=== PATIENT | male | born 1965 | race Caucasian/White ===

== ENCOUNTER 2016-10-21 12:30 | Outpatient (CLI) | payer OTHER ==
[2016-10-21 18:01] LABS: EOSINOPHILS # (AUTO) 0.5 10^3/uL (0.0-0.7); HGB - HEMOGLOBIN 13.8 g/dL (14.0-18.0); LYMPHOCYTES # (AUTO) 1.4 10^3/uL (1.5-3.5); MEAN PLATELET VOLUME 9.6 fL (7.4-11.4); MONOCYTES # (AUTO) 0.4 10^3/uL (0.0-1.0)
[2016-10-21 18:06] LABS: BASOPHILS # (AUTO) 0.1 10^3/uL (0.0-0.1); BASOPHILS % (AUTO) 1.1 %; EOSINOPHILS % (AUTO) 8.3 %; HCT - HEMATOCRIT 40.6 % (42.0-52.0); LYMPHOCYTES % (AUTO) 24.7 %; MEAN CORPUSCULAR HGB CONC 33.9 g/dL (32.0-36.0); MEAN CORPUSCULAR VOLUME 94.3 fL (80.0-94.0); MONOCYTES % (AUTO) 7.6 %; NEUTROPHILS # (AUTO) 3.2 10^3/uL (1.5-6.6); NEUTROPHILS % (AUTO) 58.3 %; RED CELL DISTRIBUTION WIDTH 13.6 % (12.0-15.0); UNCORRECTED WHITE BLOOD COUNT 5.5 x10^3/uL; WHITE BLOOD COUNT 5.5 x10^3/uL (4.8-10.8)
[2016-10-21 18:30] LABS: BILIRUBIN,TOTAL 2.2 mg/dL (0.2-1.0); CALCIUM 8.9 mg/dL (8.5-10.3); CREATININE 0.7 mg/dL (0.6-1.2); TOTAL PROTEIN 7.1 g/dL (6.7-8.2)
== END 2016-10-21 12:31 | disposition home or self-care (01) ==
LOC: LAB.F 12:30
PROVIDERS: ATTEND Internal Medicine
DX: R94.5 Abnormal results of liver function studies (principal); D64.9 Anemia, unspecified
CPT/HCPCS: 36415; 80053; 85025

== ENCOUNTER 2018-08-04 18:02 | Outpatient (CLI) | payer OTHER | END 2018-08-04 18:03 | disposition critical access hospital (66) | LOC: EMS 18:02 | PROVIDERS: ATTEND Surgery | DX: R42 Dizziness and giddiness (principal); R11.2 Nausea with vomiting, unspecified; R61 Generalized hyperhidrosis; R20.2 Paresthesia of skin; W57.XXXA Bitten or stung by nonvenomous insect and other nonvenomous arthropods, initial encounter | CPT/HCPCS: A0425; A0427 ==

== ENCOUNTER 2018-08-04 18:30 | Emergency (ER) | payer OTHER ==
[2018-08-04] MEDS ORDERED: methylPREDNISolone SUCCINATE 125 MG/2 ML VIAL IVP STA (18:37)
--- NOTE | 2018-08-04 18:38 | ED Physician Documentation ---
PD HPI SKIN - Stated complaint Stated Complaint: BEE STING - Chief complaint Chief Complaint: Allergic Rx - History obtained from History obtained from: Patient, EMS - History of Present Illness Timing - onset: Today (53-year-old gentleman with history of bee sting anaphylaxis presents after a bee sting to the right inner arm with a syncopal episode. He presented with his to an EMS station where his blood pressure was 90 systolic despite having a history of hypertension. They administered IV Benadryl and IM epinephrine with improvement. He feels shaky and drained now but feels otherwise back to normal. There was never any wheezing or angioedema.) Review of Systems Constitutional: denies: Fever, Chills Ears: reports: Reviewed and negative Nose: reports: Reviewed and negative Throat: reports: Reviewed and negative Cardiac: reports: Reviewed and negative Respiratory: reports: Reviewed and negative PD PAST MEDICAL HISTORY - Past Medical History Cardiovascular: Hypertension, High cholesterol, Deep vein thrombosis, Pulmonary embolism, Atrial fibrillation Respiratory: Sleep apnea Endocrine/Autoimmune: None GI: GI bleed : None HEENT: None Psych: None, Anxiety, Claustrophobia Musculoskeletal: None Derm: None - Past Surgical History Past Surgical History: Yes - Present Medications Home Medications: Ambulatory Orders Medication Instructions Recorded Confirmed Carvedilol 25 mg PO BID 09/27/12 11/08/15 EPINEPHrine [Epinephrine] 0.3 mg IJ ONCE PRN #2 auto.injct 08/04/18 predniSONE [Deltasone] 60 mg PO DAILY 5 Days tablet 08/04/18 - Allergies Allergies/Adverse Reactions: Allergies Allergy/AdvReac Type Severity Reaction Status Date / Time BEE STINGS AdvReac Severe Anaphylaxis Uncoded 08/04/18 18:36 - Social History Does the pt smoke?: No Smoking Status: Never smoker Does the pt drink ETOH?: Yes Does the pt have substance abuse?: Yes - Immunizations Immunizations are current?: Yes - POLST Patient has POLST: No PD ED PE NORMAL - Vitals Vital signs reviewed: Yes - General General: Alert and oriented X 3, No acute distress - HEENT HEENT: PERRL, EOMI, Ears normal, Moist mucous membranes, Pharynx benign - Neck Neck: Supple, no meningeal sign, No bony TTP - Cardiac Cardiac: RRR, No murmur - Respiratory Respiratory: No respiratory distress, Clear bilaterally - Abdomen Abdomen: Soft, Non tender - Back Back: No CVA TTP, No spinal TTP - Derm Derm: Normal color, Warm and dry - Extremities Extremities: No edema, No calf tenderness / cord - Neuro Neuro: Alert and oriented X 3, Normal speech - Psych Psych: Normal mood, Normal affect Results - Vitals Vitals: Vital Signs - 24 hr 08/04/18 08/04/18 08/04/18 18:31 19:19 21:00 Temperature 36.6 C Heart Rate 104 H 124 H 95 Respiratory 22 18 18 Rate Blood Pressure 134/81 H 144/102 H 164/110 H O2 Saturation 97 95 95 Oxygen O2 Source Room air - EKG (time done) 2020 Rate: Rate (enter#) (94) Rhythm: NSR Valier: Normal Intervals: Normal IA QRS: Normal Ischemia: Normal ST segments Computer interpretation: Agree with computer PD MEDICAL DECISION MAKING - ED course ED course: 53-year-old gentleman with anaphylaxis after a bee sting. He was administered epinephrine and Benadryl prior to arrival with improvement and observed in the department for several hours without evidence of recurrence. He had epi-pens at home but these were refilled as he thought they were . Departure - Departure Disposition: Home, Self Care Clinical Impression: Anaphylaxis Qualifiers: Encounter type: initial encounter Qualified Code(s): T78.2XXA - Anaphylactic shock, unspecified, initial encounter Condition: Good Record reviewed to determine appropriate education?: Yes Instructions: ED Bite Sting Insect Gen Allergic React Prescriptions: EPINEPHrine [Epinephrine] 0.3 mg IJ ONCE PRN #2 auto.injct PRN Reason: Allergy Symptoms predniSONE [Deltasone] 60 mg PO DAILY 5 Days tablet Comments: Call your doctor to arrange a follow-up appointment, make the next available appointment. In the interim, return anytime if worse or if new symptoms develop.
[2018-08-04] MEDS ORDERED: SODIUM CHLORIDE 0.9% 1,000 ML IV ONE (18:47)
[2018-08-04 21:05] VITALS: BP 164/110
[2018-08-04] MEDS ORDERED: HYDROcod/ACET 5/325 Prepack 4 PO STA (21:35)
== END 2018-08-04 21:52 | disposition home or self-care (01) ==
LOC: EDUNIT# → ED 18:30
DX: T63.441A Toxic effect of venom of bees, accidental (unintentional), initial encounter (principal); X58.XXXA Exposure to other specified factors, initial encounter; R55 Syncope and collapse; I10 Essential (primary) hypertension
CPT/HCPCS: 93005; 96361; 96374; 99283; 99284

== ENCOUNTER 2019-12-06 15:26 | Outpatient (CLI) | payer OTHER | END 2019-12-06 15:27 | disposition home or self-care (01) | LOC: LAB.S 15:26 | PROVIDERS: ATTEND Ophthalmology | DX: H53.2 Diplopia (principal) | CPT/HCPCS: 36415; 83036; 83519; 84443; 85651; 86038; 86140 ==

== ENCOUNTER 2020-01-23 10:55 | Outpatient (CLI) | payer OTHER ==
[2020-01-23 15:18] LABS: BASOPHILS % (AUTO) 0.2 %; EOSINOPHILS % (AUTO) 0.2 %; LYMPHOCYTES # (AUTO) 0.7 10^3/uL (1.5-3.5); LYMPHOCYTES % (AUTO) 7.9 %; MEAN CORPUSCULAR HEMOGLOBIN 35.1 pg (27.0-31.0); MEAN CORPUSCULAR HGB CONC 35.1 g/dL (32.0-36.0); MEAN PLATELET VOLUME 10.7 fL (7.4-11.4); MONOCYTES # (AUTO) 0.8 10^3/uL (0.0-1.0); MONOCYTES % (AUTO) 9.1 %; NEUTROPHILS # (AUTO) 7.4 10^3/uL (1.5-6.6); NEUTROPHILS % (AUTO) 81.7 %; PLT - PLATELET COUNT 90 10^3/uL (130-450); RED BLOOD COUNT 4.56 10^6/uL (4.70-6.10); RED CELL DISTRIBUTION WIDTH 13.1 % (12.0-15.0); WHITE BLOOD COUNT 9.1 x10^3/uL (4.8-10.8)
[2020-01-23 15:34] LABS: ALT ALANINE AMINOTRANSFERASE 63 IU/L (10-60); AST ASPARTATE AMINOTRANSFERASE 144 IU/L (10-42)
== END 2020-01-23 10:56 | disposition home or self-care (01) ==
LOC: LAB.S 10:55
PROVIDERS: ATTEND Psychiatry & Neurology Neurology
DX: Z51.81 Encounter for therapeutic drug level monitoring (principal); Z79.899 Other long term (current) drug therapy
CPT/HCPCS: 36415; 84450; 84460; 85025

== ENCOUNTER 2020-07-18 11:45 | Outpatient (CLI) | payer OTHER ==
[2020-07-18 14:53] LABS: BASOPHILS # (AUTO) 0.1 10^3/uL (0.0-0.1); BASOPHILS % (AUTO) 1.9 %; EOSINOPHILS # (AUTO) 0.4 10^3/uL (0.0-0.7); EOSINOPHILS % (AUTO) 9.5 %; HCT - HEMATOCRIT 35.5 % (42.0-52.0); HGB - HEMOGLOBIN 11.7 g/dL (14.0-18.0); LYMPHOCYTES % (AUTO) 20.6 %; MEAN CORPUSCULAR HEMOGLOBIN 30.6 pg (27.0-31.0); MEAN CORPUSCULAR VOLUME 92.9 fL (80.0-94.0); MEAN PLATELET VOLUME 10.6 fL (7.4-11.4); MONOCYTES # (AUTO) 0.8 10^3/uL (0.0-1.0); MONOCYTES % (AUTO) 18.2 %; NEUTROPHILS # (AUTO) 2.3 10^3/uL (1.5-6.6); NEUTROPHILS % (AUTO) 49.4 %; PLT - PLATELET COUNT 117 10^3/uL (130-450); RED BLOOD COUNT 3.82 10^6/uL (4.70-6.10); RED CELL DISTRIBUTION WIDTH 16.3 % (12.0-15.0); WHITE BLOOD COUNT 4.6 x10^3/uL (4.8-10.8)
== END 2020-07-18 11:46 | disposition home or self-care (01) ==
LOC: LAB.S 11:45
PROVIDERS: ATTEND Internal Medicine Infectious Disease
DX: K65.1 Peritoneal abscess (principal)
CPT/HCPCS: 36415; 85025; 85651; 86140

== ENCOUNTER 2020-08-04 15:37 | Outpatient (CLI) | payer OTHER ==
[2020-08-04 19:54] LABS: BASOPHILS # (AUTO) 0.1 10^3/uL (0.0-0.1); BASOPHILS % (AUTO) 1.8 %; EOSINOPHILS # (AUTO) 0.5 10^3/uL (0.0-0.7); EOSINOPHILS % (AUTO) 10.9 %; HCT - HEMATOCRIT 34.4 % (42.0-52.0); HGB - HEMOGLOBIN 11.4 g/dL (14.0-18.0); LYMPHOCYTES # (AUTO) 1.3 10^3/uL (1.5-3.5); LYMPHOCYTES % (AUTO) 28.5 %; MEAN CORPUSCULAR HEMOGLOBIN 30.4 pg (27.0-31.0); MEAN CORPUSCULAR HGB CONC 33.1 g/dL (32.0-36.0); MEAN CORPUSCULAR VOLUME 91.7 fL (80.0-94.0); MONOCYTES # (AUTO) 0.7 10^3/uL (0.0-1.0); MONOCYTES % (AUTO) 15.9 %; NEUTROPHILS # (AUTO) 1.9 10^3/uL (1.5-6.6); NEUTROPHILS % (AUTO) 42.7 %; PLT - PLATELET COUNT 97 10^3/uL (130-450); RED BLOOD COUNT 3.75 10^6/uL (4.70-6.10); RED CELL DISTRIBUTION WIDTH 15.7 % (12.0-15.0); WHITE BLOOD COUNT 4.4 x10^3/uL (4.8-10.8)
== END 2020-08-04 15:38 | disposition home or self-care (01) ==
LOC: LAB.S 15:37
PROVIDERS: ATTEND Internal Medicine Infectious Disease
DX: K65.1 Peritoneal abscess (principal)
CPT/HCPCS: 36415; 85025; 85651; 86141

== ENCOUNTER 2020-12-10 15:59 | Outpatient (CLI) | payer OTHER ==
[2020-12-10 19:58] LABS: HCT - HEMATOCRIT 40.2 % (42.0-52.0); HGB - HEMOGLOBIN 13.6 g/dL (14.0-18.0); LYMPHOCYTES # (AUTO) 0.4 10^3/uL (1.5-3.5); MEAN CORPUSCULAR HEMOGLOBIN 32.2 pg (27.0-31.0); MEAN CORPUSCULAR HGB CONC 33.8 g/dL (32.0-36.0); MEAN PLATELET VOLUME 10.6 fL (7.4-11.4); MONOCYTES # (AUTO) 0.2 10^3/uL (0.0-1.0); MONOCYTES % (AUTO) 6.3 %; NEUTROPHILS # (AUTO) 2.4 10^3/uL (1.5-6.6); NEUTROPHILS % (AUTO) 78.4 %; PLT - PLATELET COUNT 67 10^3/uL (130-450); RED BLOOD COUNT 4.23 10^6/uL (4.70-6.10); RED CELL DISTRIBUTION WIDTH 13.7 % (12.0-15.0)
[2020-12-10 20:09] LABS: ALBUMIN 3.4 g/dL (3.2-5.5); BILIRUBIN,TOTAL 2.3 mg/dL (0.2-1.0); CALCIUM 8.9 mg/dL (8.5-10.3); CREATININE 0.7 mg/dL (0.6-1.2); POTASSIUM 4.2 mmol/L (3.5-5.0); TOTAL PROTEIN 6.7 g/dL (6.7-8.2)
== END 2020-12-10 16:00 | disposition home or self-care (01) ==
LOC: LAB.S 15:59
PROVIDERS: ATTEND Registered Nurse
DX: I82.401 Acute embolism and thrombosis of unspecified deep veins of right lower extremity (principal); D70.8 Other neutropenia; D69.6 Thrombocytopenia, unspecified; K70.30 Alcoholic cirrhosis of liver without ascites
CPT/HCPCS: 36415; 80053; 85025

== ENCOUNTER 2021-05-14 08:00 | Outpatient (CLI) | payer OTHER ==
[2021-05-14 20:00] LABS: BASOPHILS # (AUTO) 0.1 10^3/uL (0.0-0.1); EOSINOPHILS # (AUTO) 0.7 10^3/uL (0.0-0.7); EOSINOPHILS % (AUTO) 9.2 %; HGB - HEMOGLOBIN 13.2 g/dL (14.0-18.0); LYMPHOCYTES # (AUTO) 0.8 10^3/uL (1.5-3.5); LYMPHOCYTES % (AUTO) 10.7 %; MEAN CORPUSCULAR HEMOGLOBIN 32.9 pg (27.0-31.0); MEAN CORPUSCULAR HGB CONC 34.7 g/dL (32.0-36.0); MEAN CORPUSCULAR VOLUME 94.8 fL (80.0-94.0); MEAN PLATELET VOLUME 10.6 fL (7.4-11.4); MONOCYTES # (AUTO) 0.5 10^3/uL (0.0-1.0); MONOCYTES % (AUTO) 6.3 %; NEUTROPHILS # (AUTO) 5.3 10^3/uL (1.5-6.6); PLT - PLATELET COUNT 69 10^3/uL (130-450); RED BLOOD COUNT 4.01 10^6/uL (4.70-6.10); RED CELL DISTRIBUTION WIDTH 13.7 % (12.0-15.0); WHITE BLOOD COUNT 7.3 x10^3/uL (4.8-10.8)
== END 2021-05-14 23:59 ==
LOC: LAB.S 08:00
PROVIDERS: ATTEND Registered Nurse
DX: I82.401 Acute embolism and thrombosis of unspecified deep veins of right lower extremity (principal); G62.9 Polyneuropathy, unspecified; D69.6 Thrombocytopenia, unspecified; D70.8 Other neutropenia
CPT/HCPCS: 36415; 85025

== ENCOUNTER 2022-07-08 11:15 | Outpatient (CLI) | payer OTHER ==
[2022-07-08 14:34] LABS: BASOPHILS # (AUTO) 0.1 10^3/uL (0.0-0.1); BASOPHILS % (AUTO) 1.3 %; EOSINOPHILS # (AUTO) 0.3 10^3/uL (0.0-0.7); EOSINOPHILS % (AUTO) 4.3 %; HCT - HEMATOCRIT 41.7 % (42.0-52.0); HGB - HEMOGLOBIN 14.1 g/dL (14.0-18.0); LYMPHOCYTES # (AUTO) 1.2 10^3/uL (1.5-3.5); LYMPHOCYTES % (AUTO) 18.7 %; MEAN CORPUSCULAR HGB CONC 33.8 g/dL (32.0-36.0); MEAN CORPUSCULAR VOLUME 97.7 fL (80.0-94.0); MEAN PLATELET VOLUME 10.3 fL (7.4-11.4); MONOCYTES # (AUTO) 0.6 10^3/uL (0.0-1.0); MONOCYTES % (AUTO) 9.4 %; NEUTROPHILS # (AUTO) 4.2 10^3/uL (1.5-6.6); NEUTROPHILS % (AUTO) 65.7 %; PLT - PLATELET COUNT 118 10^3/uL (130-450); RED BLOOD COUNT 4.27 10^6/uL (4.70-6.10); RED CELL DISTRIBUTION WIDTH 13.8 % (12.0-15.0); WHITE BLOOD COUNT 6.3 x10^3/uL (4.8-10.8)
[2022-07-08 14:40] LABS: PARTIAL THROMBOPLASTIN TIME 29.8 secs (24.9-33.3)
[2022-07-08 14:48] LABS: INR 1.2 (0.8-1.2); PT - PROTHROMBIN TIME 13.2 secs (9.9-12.6)
[2022-07-08 15:28] LABS: ALBUMIN 3.3 g/dL (3.2-5.5); BILIRUBIN,TOTAL 2.3 mg/dL (0.2-1.0); CALCIUM 8.9 mg/dL (8.5-10.3); CREATININE 0.7 mg/dL (0.6-1.2); POTASSIUM 3.7 mmol/L (3.5-5.0); TOTAL PROTEIN 6.5 g/dL (6.7-8.2)
== END 2022-07-08 11:16 | disposition home or self-care (01) ==
LOC: LAB.S 11:15
PROVIDERS: ATTEND Registered Nurse
DX: G70.00 Myasthenia gravis without (acute) exacerbation (principal); D69.6 Thrombocytopenia, unspecified; K70.30 Alcoholic cirrhosis of liver without ascites
CPT/HCPCS: 36415; 80053; 85025; 85610; 85730

== ENCOUNTER 2023-01-14 11:05 | Outpatient (CLI) | payer OTHER ==
[2023-01-14 15:33] LABS: BASOPHILS # (AUTO) 0.1 10^3/uL (0.0-0.1); BASOPHILS % (AUTO) 0.8 %; EOSINOPHILS # (AUTO) 0.2 10^3/uL (0.0-0.7); EOSINOPHILS % (AUTO) 2.4 %; HCT - HEMATOCRIT 43.4 % (42.0-52.0); HGB - HEMOGLOBIN 14.5 g/dL (14.0-18.0); LYMPHOCYTES % (AUTO) 10.4 %; MEAN CORPUSCULAR HGB CONC 33.4 g/dL (32.0-36.0); MEAN CORPUSCULAR VOLUME 98.9 fL (80.0-94.0); MEAN PLATELET VOLUME 10.6 fL (7.4-11.4); MONOCYTES # (AUTO) 0.6 10^3/uL (0.0-1.0); MONOCYTES % (AUTO) 5.9 %; NEUTROPHILS # (AUTO) 7.6 10^3/uL (1.5-6.6); NEUTROPHILS % (AUTO) 79.6 %; PLT - PLATELET COUNT 112 10^3/uL (130-450); RED BLOOD COUNT 4.39 10^6/uL (4.70-6.10); RED CELL DISTRIBUTION WIDTH 14.3 % (12.0-15.0); WHITE BLOOD COUNT 9.6 x10^3/uL (4.8-10.8)
[2023-01-14 15:51] LABS: INR 1.3 (0.8-1.2); PT - PROTHROMBIN TIME 13.9 secs (9.9-12.6)
[2023-01-14 15:55] LABS: ALBUMIN 3.5 g/dL (3.2-5.5)
[2023-01-14 15:59] LABS: PARTIAL THROMBOPLASTIN TIME 25.9 secs (24.9-33.3)
[2023-01-14 16:19] LABS: ALBUMIN/GLOBULIN RATIO 1.5 (1.0-2.2); BILIRUBIN,TOTAL 2.5 mg/dL (0.2-1.0); CALCIUM 8.6 mg/dL (8.5-10.3); CREATININE 0.9 mg/dL (0.6-1.3); POTASSIUM 3.8 mmol/L (3.5-4.5); TOTAL PROTEIN 5.8 g/dL (6.4-8.9)
[2023-01-14 18:31] LABS: ESTIMATED AVERAGE GLUCOSE 123 mg/dL (70-100); HEMOGLOBIN A1c% 5.9 % (4.27-6.07)
== END 2023-01-14 11:06 | disposition home or self-care (01) ==
LOC: LAB.S 11:05
PROVIDERS: ATTEND Psychiatry & Neurology Neurology
DX: G70.00 Myasthenia gravis without (acute) exacerbation (principal); E09.9 Drug or chemical induced diabetes mellitus without complications; T38.0X5D Adverse effect of glucocorticoids and synthetic analogues, subsequent encounter
CPT/HCPCS: 36415; 80053; 83036; 85025; 85610; 85730

== ENCOUNTER 2023-10-07 13:00 | Outpatient (CLI) | payer OTHER ==
[2023-10-07 20:05] LABS: CALCIUM 8.8 mg/dL (8.5-10.3); CREATININE 0.7 mg/dL (0.6-1.3); POTASSIUM 3.9 mmol/L (3.5-4.5)
== END 2023-10-07 13:01 | disposition home or self-care (01) ==
LOC: LAB.S 13:00
PROVIDERS: ATTEND Psychiatry & Neurology Neurology
DX: D84.821 Immunodeficiency due to drugs (principal); T38.0X5A Adverse effect of glucocorticoids and synthetic analogues, initial encounter; Z79.52 Long term (current) use of systemic steroids
CPT/HCPCS: 36415; 80048

== ENCOUNTER 2024-04-05 16:42 | Observation (INO) ==
--- NOTE | 2024-04-05 16:50 | ED Physician Documentation ---
History of Present Illness Stated complaint Stated Complaint: SOA/FATIGUE Chief complaint Chief Complaint: General History obtained from History obtained from: Patient and EMS Additonal information Additional information: 58-year-old gentleman with history of atrial fibrillation on Eliquis, no rate control agents. Per him he is "out of A-fib more than in it" and actually thinks it is probably been several years since he has had A-fib. He also has myasthenia. He is had significant fatigue for several days and now feeling more short of breath. It is not associate with cough, chest pain, pedal edema, fever s. Meds/Allgy Home Medications Ambulatory Orders Medication Instructions Recorded Confirmed epinephrine 0.3 mg/0.3 mL 0.3 mg (0.3 mL) IJ ONCE PRN 08/04/18 04/05/24 injection, auto-injector Allergy Symptoms ##2 prednisone 20 mg tablet 60 mg (3 x 20 mg) PO DAILY 5 days 08/04/18 04/05/24 apixaban 5 mg tablet (Eliquis) 5 mg PO BID 04/05/24 04/05/24 duloxetine 20 mg capsule,delayed 20 mg PO BID 04/05/24 04/05/24 release furosemide 40 mg tablet 40 mg PO QDAY 04/05/24 04/05/24 rifaximin 550 mg tablet 550 mg PO BID 04/05/24 04/05/24 Allergies Allergies Allergy/AdvReac Type Severity Reaction Status Date / Time BEE STINGS AdvReac Severe Anaphylaxis Uncoded 04/05/24 16:51 PFSH Active Problems All Active Problems (Updated 04/05/24 @ 17:36 by Sid Torres MD) Acute upper GI bleed (Acute) Cardiac murmur (Acute) Hypotension (Acute) Atrial fibrillation with RVR (Acute) Anaphylaxis (Acute) Atrial fibrillation and flutter (Acute) Medical History Medical History Myasthenia gravis Atrial fibrillation Social History Social History Smoking Status: Never smoker Do you dip or chew tobacco?: No Patient requests smoking cessation consult: No Initiate information on smoking cessation: No Relationship: Do you feel safe in your home environment?: Yes Suffered physical, verbal, emotional, or financial abuse?: No History of Abuse: No ETOH Use: Frequency: Daily POLST Patient has POLST: No Exam Constitutional normal general appearance and no apparent distress He does appear pale to me. Respiratory breath sounds equal bilaterally and normal respiratory effort Cardiovascular Rapid and irregular. Neurology GCS 15 Psychiatry oriented x3 Results Vitals Vitals: Vital Signs - 24 hr 04/05/24 16:49 Temperature 36.9 C Temperature Source Skin Pulse Rate 116 H Respiratory Rate 19 Blood Pressure 143/97 H O2 Saturation 100 O2 Source Room air Pain Intensity 6 Oxygen O2 Source Room air EKG (time done) 1658: EKG releavant findings:: EKG personally interpreted by author of this note. Relevant findings are: Sinus rhythm with frequent premature beats, long QT and other nonspecific changes. No ischemia. Labs Labs: Laboratory Tests 04/05/24 16:57 WBC 5.3 RBC 2.74 L Hgb 7.2 L Hct 23.5 L MCV 85.8 MCH 26.3 L MCHC 30.6 L RDW 14.6 Plt Count 151 MPV 10.7 Neut # (Auto) 2.9 Lymph # (Auto) 1.2 L Terrell # (Auto) 0.7 Eos # (Auto) 0.5 Baso # (Auto) 0.1 Absolute Nucleated RBC 0.00 Nucleated RBC % 0.0 Sodium 141 Potassium 2.7 L Chloride 104 Carbon Dioxide 28 Anion Gap 9.0 BUN 13 Creatinine 0.7 Estimated GFR (MDRD) 115 Glucose 134 H Calcium 9.1 Total Bilirubin 2.5 H AST 21 ALT 12 Alkaline Phosphatase 57 B-Natriuretic Peptide 195 H Total Protein 4.9 L Albumin 3.3 Globulin 1.6 L Albumin/Globulin Ratio 2.1 Rads (name of study) Single view chest x-ray is unremarkable: Relevant Findings:: Final report received and EMP independent interpretation of test (NAD) PD Medical Decision Making ED course ED course: He presents with fatigue and shortness of breath. He is in slightly rapid A- fib, which she has had before but says he thinks it has been a few years since he has been in it. The A-fib could be the reason for his symptoms. Alternatively he does appear pale so anemia would also be considered. Really no signs of heart failure, pneumonia or anything like that. On the monitor he is more in rapid A-fib than anything else but the twelve-lead EKG caught mostly sinus rhythm. Subsequent workup demonstrated a hemoglobin of 7 noting that previous hemoglobins were 14 just a few months ago. Rectal exam was done with dark stool that was guaiac positive. His CMP was notable for pretty significant hypokalemia at 2.7. He is started on a PPI. I spoke with Dr. Xavier, our on- call surgeon who will see him and plans to do an upper endoscopy tomorrow. And subsequently spoke with our hospitalist service for admission at 5:30 PM. The patient and family are counseled as to the diagnosis and need for admission. This document was made in part using voice recognition software, while efforts are made to proofread this document, sound alike an grammatical errors may occur. Discharge Plan Discharge Patient Disposition: ED Place in Observation Condition: Serious Clinical Impression: Acute upper GI bleed Prescriptions: No Action prednisone 20 MG tablet 60 mg PO DAILY 5 Days 0RF Rx Instructions: 3 X 20 MG TABS. QS epinephrine 0.3 MG/0.3 ML auto-injector 0.3 mg IJ ONCE PRN (Reason: Allergy Symptoms) Qty: 2 0RF furosemide 40 mg tablet 40 mg PO QDAY rifaximin 550 mg tablet 550 mg PO BID Eliquis 5 mg tablet 5 mg PO BID duloxetine 20 mg capsule,delayed release(DR/EC) 20 mg PO BID Print Language: Tunisian Stand Alone Forms: PCP List
[2024-04-05] MEDS: METOPROLOL 5 MG/5 ML VIAL IVP STA (17:06)
[2024-04-05 17:07] LABS: BASOPHILS # (AUTO) 0.1 10^3/uL (0.0-0.1); BASOPHILS % (AUTO) 1.7 %; EOSINOPHILS # (AUTO) 0.5 10^3/uL (0.0-0.7); EOSINOPHILS % (AUTO) 8.7 %; HCT - HEMATOCRIT 23.5 % (42.0-52.0); HGB - HEMOGLOBIN 7.2 g/dL (14.0-18.0); LYMPHOCYTES # (AUTO) 1.2 10^3/uL (1.5-3.5); LYMPHOCYTES % (AUTO) 21.7 %; MEAN CORPUSCULAR HEMOGLOBIN 26.3 pg (27.0-31.0); MEAN CORPUSCULAR HGB CONC 30.6 g/dL (32.0-36.0); MEAN CORPUSCULAR VOLUME 85.8 fL (80.0-94.0); MEAN PLATELET VOLUME 10.7 fL (7.4-11.4); MONOCYTES # (AUTO) 0.7 10^3/uL (0.0-1.0); MONOCYTES % (AUTO) 12.8 %; NEUTROPHILS # (AUTO) 2.9 10^3/uL (1.5-6.6); NEUTROPHILS % (AUTO) 54.7 %; PLT - PLATELET COUNT 151 10^3/uL (130-450); RED BLOOD COUNT 2.74 10^6/uL (4.70-6.10); RED CELL DISTRIBUTION WIDTH 14.6 % (12.0-15.0); WHITE BLOOD COUNT 5.3 x10^3/uL (4.8-10.8)
[2024-04-05 17:27] LABS: ALBUMIN 3.3 g/dL (3.2-5.5); ALBUMIN/GLOBULIN RATIO 2.1 (1.0-2.2); BILIRUBIN,TOTAL 2.5 mg/dL (0.2-1.0); CALCIUM 9.1 mg/dL (8.5-10.3); CREATININE 0.7 mg/dL (0.6-1.3); POTASSIUM 2.7 mmol/L (3.5-4.5); TOTAL PROTEIN 4.9 g/dL (6.4-8.9)
--- NOTE | 2024-04-05 17:37 | XRAY Report ---
PROCEDURE: XR Chest 1V INDICATIONS: dyspnea TECHNIQUE: One view of the chest was acquired. COMPARISON: Chest radiograph 11/08/2015. FINDINGS: Surgical changes and devices: None. Lungs and pleura: No pleural effusions or pneumothorax. No consolidation. Mediastinum: Mediastinal contours appear normal. Heart size is normal. Bones and chest wall: No suspicious bony lesions. Overlying soft tissues appear unremarkable. IMPRESSION: No acute cardiopulmonary process. Reviewed by: Chantal Rao MD, PhD on 04/05/2024 5:35 PM PST Approved by: Chantal Rao MD, PhD on 04/05/2024 5:35 PM PST Station ID: [id number]
[2024-04-05] MEDS: POTASSIUM CHLOR 10 MEQ/100 ML 10 MEQ/100 ML BAG IV SCH (18:05)
[2024-04-05] MEDS: PANTOPRAZOLE 40 MG VIAL IVP STA (18:05)
--- NOTE | 2024-04-05 18:37 | HISTORY & PHYSICAL EXAMINATION ---
Chief Complaint Chief Complaint Chief Complaint: Fatigue and shortness of breath History of Present Illness History Obtained From Records Reviewed: [facility] records, [place] and more recent [facility] chart History obtained from: Patient and spouse History of Present Illness HPI Comment/Other: 58-year-old gentleman who presents to the emergency department complaining of fatigue that has been going on for several weeks and shortness of breath that started today. He has a history of both atrial fibrillation and DVT with PE for which she takes Eliquis. He was seen earlier today in our walk-in clinic and was sent to the ED due to orthostatic vital signs which were positive, he had a standing blood pressure of 86/57 as well as atrial fibrillation with a heart rate between 102 and 116. He has a past medical history of myasthenia gravis for which he takes IVIG infusions supposed to get them 4 weeks on 4 weeks off most recent infusion was 1 week ago today he was due for an infusion today but did not take it due to these issues. He gets these through home health. He is followed by a neurologist at [facility]. He also has a history of alcoholic liver failure he is status post TIPS procedure according to my review of gastroenterology notes from [facility]. He takes rifaximin 550 mg twice daily as well as furosemide 40 mg daily. He is followed by [facility] at [facility]. He states he has noted melanotic stools over the last week or so. He thinks it is because he has been eating lots of chocolate. His last colonoscopy was in 2015. He was to have a repeat in 5 years. 1 sessile polyp was removed from the sigmoid colon at this time. He has not had repeat colonoscopy since that time. He last had an EGD in November 2021 per my review of the [facility] chart, at [facility]. There were no findings at this time. He has a past surgical history of hernia repair as an . He states this is an inguinal hernia. No other abdominal surgeries. He does have a history of spontaneous bacterial peritonitis and has had paracentesis in the past when his liver cirrhosis was bad. He has a history of diabetes mellitus for which she is on no treatment. His hemoglobin A1c was 8.2% in December 2023. 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 Prednisone dosing has been decreased since the time that the last hemoglobin A1c was taken. He lives with his here on [place] they have 2 sons who also live on the [place]. He is sober from alcohol for 5 years and does not use tobacco. He has had no tobacco history. His primary care provider recently left the practice. He is supposed to get a new 1 he is followed by [facility]. He was previously seen by Toy Garcia. Meds/Allgy Home Medications Ambulatory Orders Medication Instructions Recorded Confirmed epinephrine 0.3 mg/0.3 mL 0.3 mg (0.3 mL) IJ ONCE PRN 08/04/18 04/05/24 injection, auto-injector Allergy Symptoms ##2 prednisone 20 mg tablet 60 mg (3 x 20 mg) PO DAILY 5 days 08/04/18 04/05/24 apixaban 5 mg tablet (Eliquis) 5 mg PO BID 04/05/24 04/05/24 duloxetine 20 mg capsule,delayed 20 mg PO BID 04/05/24 04/05/24 release furosemide 40 mg tablet 40 mg PO QDAY 04/05/24 04/05/24 rifaximin 550 mg tablet 550 mg PO BID 04/05/24 04/05/24 Allergies Allergies Allergy/AdvReac Type Severity Reaction Status Date / Time BEE STINGS AdvReac Severe Anaphylaxis Uncoded 04/05/24 16:51 PFSH Active Problems All Active Problems (Updated 04/05/24 @ 21:09 by CHENCHO Connell) Liver cirrhosis (Acute) Hypokalemia (Acute) Acute upper GI bleed (Acute) Cardiac murmur (Acute) Hypotension (Acute) Atrial fibrillation with RVR (Acute) Anaphylaxis (Acute) Atrial fibrillation and flutter (Acute) Medical History Medical History Myasthenia gravis Atrial fibrillation Social History Social History Smoking Status: Never smoker Second hand tobacco smoke exposure: No Do you dip or chew tobacco?: No Do you vape?: No Patient requests smoking cessation consult: No Initiate information on smoking cessation: No Relationship: Level: Independent Do you feel safe in your home environment?: Yes Suffered physical, verbal, emotional, or financial abuse?: No History of Abuse: No ETOH Use: Frequency: Daily Substance Use: cannabis (any form) POLST Patient has POLST: No Review of Systems Status of ROS: 10 or more systems reviewed and unremarkable except as noted in history and below Constitutional Reports: Fatigue and Malaise Eyes Denies: Change in vision Ears, nose, mouth, and throat Denies: Tinnitus or Vertigo Cardiovascular Reports: Irregular heart rate, lightheadedness and shortness of breath with exertion; Denies: shortness of breath when lying down Respiratory Reports: Shortness of breath and SOB with exertion; Denies: Chest congestion Gastrointestinal Reports: Melena; Denies: Abdominal pain, Nausea, Vomiting, Constipation or Rectal bleeding Genitourinary Denies: Painful urination Musculoskeletal Denies: Extremity pain or Extremity swelling Integumentary/Breast Denies: Rash Neurological Denies: Vertigo Endocrine Reports: Fatigue Hematologic/Lymphatic Reports: Easy bleeding (xarelto); Denies: Anemia Prior Level of Functionality: independent Exam Constitutional normal general appearance and no apparent distress HENMT normocephalic, hearing grossly normal bilaterally and external ears normal Eyes conjunctivae normal Neck/C-Spine visual inspection normal Lymph no lymphadenopathy noted Chest inspection of chest normal and palpation of chest normal Respiratory breath sounds equal bilaterally, normal respiratory effort and no use of accessory muscles Cardiovascular mildly tachycardic, III/ GARRY, holosystolic. Gastrointestinal abdomen normal to inspection and abdomen soft to palpation Extremities normal to inspection Neurology stev[place] dock II-XII intact, no movement abnormality noted and speech normal Psychiatry mental status grossly normal, oriented x3, thought process normal, cooperative and affect normal Skin skin color normal Conclusion/Plan Problem List (1) Acute upper GI bleed: Plan: Patient with a hemoglobin of 7.2 review of records shows that his baseline hemoglobin is around 14.6 this is in December 2023. He is symptomatic with his anemia and having melena. He has fatigue and shortness of breath, his orthostatic vital signs were positive earlier today his heart rate is in the 110s with atrial fibrillation. 1 unit of packed red blood cells was ordered by the emergency department. I will recheck hemoglobin in the AM. We will monitor for further episodes of melena. He was given a proton pump inhibitor in the emergency department. I have ordered 40 mg of Protonix IV twice daily. I have discussed with patient with Dr. Torres in the emergency department. Decision was made to admit this patient to observation status for monitoring and treatment of his upper GI bleed. Dr. Pitts discussed the patient with Dr. Xavier who is planning on EGD in the morning. Patient was given a regular diet and will be made n.p.o. after midnight. (2) Hypokalemia: Plan: he takes Lasix 40 mg a day for his liver failure. He he does not recall any history of hypokalemia. I do not see potassium on his med list. I have ordered fluids with potassium overnight as the patient will be n.p.o. I have ordered repeat potassium check for the morning. Emergency department MD ordered 40 mill equivalents of potassium IV to be given over 4 hours. (3) Cardiac murmur: Plan: Holosystolic ejection murmur which is heard throughout the chest. Patient tells me that he has had this murmur for quite some time. It has been at least 5 years since he has had an echocardiogram. He is unable to tell me what the problem is. He is not sure if he does have aortic stenosis. I have ordered echocardiogram. (4) Hypotension: Plan: Probably related to symptomatic anemia. Blood pressures at walk-in clinic were recorded to be in the 80s over 50s with standing this afternoon. Also had a heart rate in the 1 teens at that time. Since arrival here his blood pressures are a bit low but do not qualify for hypotension. Qualifiers: Hypotension type: unspecified hypotension type Qualified Code(s): I95.9 - Hypotension, unspecified (5) Atrial fibrillation with RVR: Plan: Likely not A-fib with RVR. His rate is well under 120. More likely to be symptomatic anemia. His blood pressures are low with a heart rate in the 110s to 90s. I will not order metoprolol at this time. I am holding Eliquis due to his GI bleed. Will continue to follow. (6) Myasthenia gravis: Plan: Myasthenia gravis diagnosis has been in place for years. He is on prednisone 5 mg a day. This has been tapering down over a period of months. He is currently getting IV Ig infusions at home. These will be held until this period of acute illness is dealt with. He has a history of elevated A1c which she says is related to prednisone use is not currently on any diabetes treatment. I will check A1c in the AM. (7) Liver cirrhosis: Plan: Has been sober from alcohol for 5 years. Followed by hepatology at [facility]. He is status post TIPS procedure I believe this is about 5 years ago. He takes rifaximin 550 mg twice daily. He is also on Lasix 40 mg daily. I have continued these medications. I have ordered repeat INR for the a.m. Plan I have spent 85 minutes in the care of this patient today. This includes time [id number], review and ordering of diagnostic imaging and laboratory studies and consultation with other providers.. Monitoring the patient's signs symptoms, evaluation of medication effectiveness and patient's response to treatment. Lab Results Lab results reviewed: No 04/05/24 16:57 04/05/24 16:57 Core Measures Anticipated LOS I expect patient to be DC'd or transferred within 96 hours.: Yes DVT/VTE - Prophylaxis VTE/DVT Device ordered at admit?: Yes VTE/DVT Prophylaxis med ordered at admit?: No Not Ordered - Medical Reason: Contraindicated
[2024-04-05] MEDS ORDERED: SODIUM CHLORIDE FLUSH 0.9% 10 ML SYRINGE IVP PRN (19:01)
[2024-04-05] MEDS ORDERED: ONDANSETRON 4 MG/2 ML VIAL IVP PRN (19:01)
[2024-04-05] MEDS ORDERED: ONDANSETRON ODT 4 MG TABLET TL PRN (19:01)
[2024-04-05] MEDS: NS W/20 MEQ KCL 1,000 ML IV SCH (19:30)
--- NOTE | 2024-04-05 19:46 | CONSULTATION NOTE ---
Chief Complaint Chief Complaint Chief Complaint: weaknes History of Present Illness Admitted From Admitted From:: ed History Obtained From Records Reviewed: yes History obtained from: pt Exam Limitations: none History of Present Illness HPI Comment/Other: seen in the ed for weakness. found to have low k and to be anemic. no change in bowel habits. no noticeable bleeding. no ugi symptoms. colonoscopy 05/2015 diverticulosis thoughout and a hyperplastic polyp. he had more mild anemia in 2020. he takes eliquis and prednisone. he does not take antacids. consult for possible upper gi bleed with guaiac positive stool Meds/Allgy Home Medications Ambulatory Orders Medication Instructions Recorded Confirmed epinephrine 0.3 mg/0.3 mL 0.3 mg (0.3 mL) IJ ONCE PRN 08/04/18 04/05/24 injection, auto-injector Allergy Symptoms ##2 prednisone 20 mg tablet 60 mg (3 x 20 mg) PO DAILY 5 days 08/04/18 04/05/24 apixaban 5 mg tablet (Eliquis) 5 mg PO BID 04/05/24 04/05/24 duloxetine 20 mg capsule,delayed 20 mg PO BID 04/05/24 04/05/24 release furosemide 40 mg tablet 40 mg PO QDAY 04/05/24 04/05/24 rifaximin 550 mg tablet 550 mg PO BID 04/05/24 04/05/24 Allergies Allergies Allergy/AdvReac Type Severity Reaction Status Date / Time BEE STINGS AdvReac Severe Anaphylaxis Uncoded 04/05/24 16:51 PFSH Active Problems All Active Problems (Updated 04/05/24 @ 17:36 by Sid Torres MD) Acute upper GI bleed (Acute) Cardiac murmur (Acute) Hypotension (Acute) Atrial fibrillation with RVR (Acute) Anaphylaxis (Acute) Atrial fibrillation and flutter (Acute) Medical History Medical History Myasthenia gravis Atrial fibrillation Social History Social History Smoking Status: Never smoker Second hand tobacco smoke exposure: No Do you dip or chew tobacco?: No Do you vape?: No Patient requests smoking cessation consult: No Initiate information on smoking cessation: No Relationship: Level: Independent Do you feel safe in your home environment?: Yes Suffered physical, verbal, emotional, or financial abuse?: No History of Abuse: No ETOH Use: Frequency: Daily Substance Use: cannabis (any form) POLST Patient has POLST: No Results Lab Results Lab results reviewed: Yes 04/05/24 16:57 04/05/24 16:57 Other Lab Results: Lab Results x24hrs 04/05/24 Range/Units 16:57 WBC 5.3 (4.8-10.8) x10^3/uL RBC 2.74 L (4.70-6.10) 10^6/uL Hgb 7.2 L (14.0-18.0) g/dL Hct 23.5 L (42.0-52.0) % MCV 85.8 (80.0-94.0) fL MCH 26.3 L (27.0-31.0) pg MCHC 30.6 L (32.0-36.0) g/dL RDW 14.6 (12.0-15.0) % Plt Count 151 (130-450) 10^3/uL MPV 10.7 (7.4-11.4) fL Neut # (Auto) 2.9 (1.5-6.6) 10^3/uL Lymph # (Auto) 1.2 L (1.5-3.5) 10^3/uL [place] # (Auto) 0.7 (0.0-1.0) 10^3/uL Eos # (Auto) 0.5 (0.0-0.7) 10^3/uL Baso # (Auto) 0.1 (0.0-0.1) 10^3/uL Absolute Nucleated RBC 0.00 x10^3/uL Nucleated RBC % 0.0 /100WBC Sodium 141 (135-145) mmol/L Potassium 2.7 L (3.5-4.5) mmol/L Chloride 104 (101-111) mmol/L Carbon Dioxide 28 (21-32) mmol/L Anion Gap 9.0 (6-13) BUN 13 (6-20) mg/dL Creatinine 0.7 (0.6-1.3) mg/dL Estimated GFR (MDRD) 115 (>89) Glucose 134 H (74-104) mg/dL Calcium 9.1 (8.5-10.3) mg/dL Total Bilirubin 2.5 H (0.2-1.0) mg/dL AST 21 (10-42) IU/L ALT 12 (10-60) IU/L Alkaline Phosphatase 57 (42-121) IU/L B-Natriuretic Peptide 195 H (5-100) pg/mL Total Protein 4.9 L (6.4-8.9) g/dL Albumin 3.3 (3.2-5.5) g/dL Globulin 1.6 L (2.1-4.2) g/dL Albumin/Globulin Ratio 2.1 (1.0-2.2) Blood Type O POSITIVE Antibody Screen NEGATIVE Crossmatch IS Only See Detail Review of Systems Status of ROS: 10 or more systems reviewed and unremarkable except as noted in history and below Exam Constitutional normal general appearance and no apparent distress HENMT normocephalic and head/scalp atraumatic Eyes PERRL, EOMs intact bilaterally and no scleral icterus Neck/C-Spine trachea midline Respiratory normal respiratory effort Gastrointestinal nondistended Neurology speech normal and GCS 15 Psychiatry oriented x3, thought process normal, cooperative, affect normal and memory normal Conclusion/Plan Problem List (1) Acute upper GI bleed: Plan: no active bleeding or noticeable bleeding. waxing and waning anemia over a few years. more significant anemia now. on both prednisone and eliquis Plan egd tomorrow. parq held and consent obtained Lab Results Lab results reviewed: Yes 04/05/24 16:57 04/05/24 16:57
[2024-04-05] MEDS: rifAXIMin 550 MG TABLET PO SCH (21:20)
[2024-04-05] MEDS: DULoxetine 20 MG CAPSULE PO SCH (21:21)
[2024-04-05] MEDS: SODIUM CHLORIDE FLUSH 0.9% 10 ML SYRINGE IVP SCH (23:40)
[2024-04-06 06:25] LABS: BASOPHILS # (AUTO) 0.1 10^3/uL (0.0-0.1); BASOPHILS % (AUTO) 1.4 %; EOSINOPHILS # (AUTO) 0.6 10^3/uL (0.0-0.7); EOSINOPHILS % (AUTO) 12.7 %; HCT - HEMATOCRIT 22.3 % (42.0-52.0); HGB - HEMOGLOBIN 7.2 g/dL (14.0-18.0); LYMPHOCYTES % (AUTO) 22.6 %; MEAN CORPUSCULAR HEMOGLOBIN 27.8 pg (27.0-31.0); MEAN CORPUSCULAR HGB CONC 32.3 g/dL (32.0-36.0); MEAN CORPUSCULAR VOLUME 86.1 fL (80.0-94.0); MEAN PLATELET VOLUME 11.1 fL (7.4-11.4); MONOCYTES # (AUTO) 0.5 10^3/uL (0.0-1.0); NEUTROPHILS # (AUTO) 2.2 10^3/uL (1.5-6.6); NEUTROPHILS % (AUTO) 51.1 %; PLT - PLATELET COUNT 119 10^3/uL (130-450); RED BLOOD COUNT 2.59 10^6/uL (4.70-6.10); RED CELL DISTRIBUTION WIDTH 14.6 % (12.0-15.0); WHITE BLOOD COUNT 4.3 x10^3/uL (4.8-10.8)
[2024-04-06 06:31] LABS: INR 1.4 (0.8-1.2); PT - PROTHROMBIN TIME 15.3 secs (9.9-12.6)
[2024-04-06 06:39] LABS: ALBUMIN 2.8 g/dL (3.2-5.5); ALBUMIN/GLOBULIN RATIO 1.8 (1.0-2.2); BILIRUBIN,TOTAL 2.2 mg/dL (0.2-1.0); CALCIUM 7.8 mg/dL (8.5-10.3); CREATININE 0.7 mg/dL (0.6-1.3); POTASSIUM 3.1 mmol/L (3.5-4.5); TOTAL PROTEIN 4.4 g/dL (6.4-8.9)
[2024-04-06] MEDS: POTASSIUM CHLOR 10 MEQ/100 ML 10 MEQ/100 ML BAG IV ONE (08:36)
[2024-04-06] MEDS: PANTOPRAZOLE 40 MG VIAL IVP SCH (08:44)
[2024-04-06] MEDS: FUROSEMIDE 40 MG TABLET PO SCH (08:44)
[2024-04-06] MEDS: predniSONE 5 MG TABLET PO SCH (08:44)
--- NOTE | 2024-04-06 09:56 | ANESTHESIA PROCEDURE NOTE ---
Pre-Anesthesia VS, & Labs Diagnosis Surgical Diagnosis:: Anemia, GI bleed Procedure Procedure: EGD Vitals Vital Signs: Temp Pulse Resp BP Pulse Ox 37.3 C 66 19 117/67 98 04/06/24 09:26 04/06/24 09:26 04/06/24 09:26 04/06/24 09:26 04/06/24 09:26 NPO NPO: >8 hours Lab Results Current Lab Results: Laboratory Tests 04/06/24 06:12: WBC 4.3 L, RBC 2.59 L, Hgb 7.2 L, Hct 22.3 L, MCV 86.1, MCH 27.8, MCHC 32.3, RDW 14.6, Plt Count 119 L, MPV 11.1, Neut # (Auto) 2.2, Lymph # (Auto) 1.0 L, [place] # (Auto) 0.5, Eos # (Auto) 0.6, Baso # (Auto) 0.1, Absolute Nucleated RBC 0.00, Nucleated RBC % 0.0, PT 15.3 H, INR 1.4 H, Sodium 142, P otassium 3.1 L, Chloride 110, Carbon Dioxide 26, Anion Gap 6.0, BUN 13, Creatinine 0.7, Estimated GFR (MDRD) 115, Glucose 129 H, Calcium 7.8 L, Total Bilirubin 2.2 H, AST 19, ALT 11, Alkaline Phosphatase 52, Total Protein 4.4 L, A lbumin 2.8 L, Globulin 1.6 L, Albumin/Globulin Ratio 1.8 04/05/24 16:57: WBC 5.3, RBC 2.74 L, Hgb 7.2 L, Hct 23.5 L, MCV 85.8, MCH 26.3 L , MCHC 30.6 L, RDW 14.6, Plt Count 151, MPV 10.7, Neut # (Auto) 2.9, Lymph # (Auto) 1.2 L, [place] # (Auto) 0.7, Eos # (Auto) 0.5, Baso # (Auto) 0.1, Absolute Nucleated RBC 0.00, Nucleated RBC % 0.0, Sodium 141, Potassium 2.7 L, Chloride 104, Carbon Dioxide 28, Anion Gap 9.0, BUN 13, Creatinine 0.7, Estimated GFR (MDRD) 115, Glucose 134 H, Calcium 9.1, Total Bilirubin 2.5 H, AST 21, ALT 12, Alkaline Phosphatase 57, B-Natriuretic Peptide 195 H, Total Protein 4.9 L, Albumin 3.3, Globulin 1.6 L, Albumin/Globulin Ratio 2.1, Blood Type O POSITIVE, Antibody Screen NEGATIVE, Crossmatch IS Only See Detail Lab results reviewed: Yes 04/06/24 06:12 04/06/24 06:12 Meds/Allgy Home Medications Ambulatory Orders Medication Instructions Recorded Confirmed epinephrine 0.3 mg/0.3 mL 0.3 mg (0.3 mL) IJ ONCE PRN 08/04/18 04/05/24 injection, auto-injector Allergy Symptoms ##2 prednisone 20 mg tablet 60 mg (3 x 20 mg) PO DAILY 5 days 08/04/18 04/05/24 apixaban 5 mg tablet (Eliquis) 5 mg PO BID 04/05/24 04/05/24 duloxetine 20 mg capsule,delayed 20 mg PO BID 04/05/24 04/05/24 release furosemide 40 mg tablet 40 mg PO QDAY 04/05/24 04/05/24 rifaximin 550 mg tablet 550 mg PO BID 04/05/24 04/05/24 Allergies Allergies Allergy/AdvReac Type Severity Reaction Status Date / Time bee venom protein (honey bee) Allergy Anaphylaxis Verified 04/06/24 07:44 [facility] Active Problems All Active Problems (Updated 04/05/24 @ 21:09 by CHENCHO Connell) Liver cirrhosis (Acute) Hypokalemia (Acute) Acute upper GI bleed (Acute) Cardiac murmur (Acute) Hypotension (Acute) Atrial fibrillation with RVR (Acute) Anaphylaxis (Acute) Atrial fibrillation and flutter (Acute) Medical History Medical History (Updated 04/05/24 @ 21:09 by CHENCHO Connell) Myasthenia gravis Atrial fibrillation Surgical History Surgical History (Updated 04/06/24 @ 09:55 by Alesha Ocampo CRNA) S/P TIPS (transjugular intrahepatic portosystemic shunt) Social History Social History Smoking Status: Never smoker Second hand tobacco smoke exposure: No Do you dip or chew tobacco?: No Do you vape?: No Patient requests smoking cessation consult: No Initiate information on smoking cessation: No Relationship: Level: Independent Do you feel safe in your home environment?: Yes Suffered physical, verbal, emotional, or financial abuse?: No History of Abuse: No ETOH Use: Frequency: Daily Substance Use: cannabis (any form) POLST Patient has POLST: No Anesthesia Exam (Expanded) Exam General: Alert, Oriented x3 and Cooperative Dental: WNL Mouth Openin Fingerbreadth Neck Mobility: Normal Mallampati classification: III Plan Plan Anesthesia Type: General and IV Regional Consent for Procedure(s) Verified and Reviewed: Yes Code Status: Attempt Resuscitation ASA Classification ASA classification: 3-Severe systemic disease Is this case an emergency?: No
[2024-04-06] MEDS ORDERED: PROPOFOL 200 MG/20 ML VIAL IVP ONE (11:08)
--- NOTE | 2024-04-06 11:43 | OPERATIVE REPORT ---
Operative Report General Admit Date: 04/05/24 Procedure Data: Operation Date: 04/06/24 13:30 Proposed Procedures p Esophagogastroduodenoscopy(Not Applicable) - Jay Xavier MD Pre-Op Diagnosis: ANEMIA,A FIB WITH RVR,GI BLEED Anesthesia Type General Case Staff Anesthesia Provider: Eufemia Rausch Case Times Procedure Start: 04/06/24 11:27 Procedure End: 04/06/24 11:34 Time out: 04/06/24 11:26 Pre-Op Diagnosis: anemia and concern for ugi bleed Post Op Diagnosis: anemia. normal upper endoscopy Procedure Note Pathology: none Indications: anemia and concern for ugi bleed Findings: normal upper endoscopy. no ulcers, no blood, no varices Complications: none
[2024-04-06] MEDS: POTASSIUM CHLOR 10 MEQ/100 ML 10 MEQ/100 ML BAG IV SCH (11:52)
[2024-04-06 12:23] LABS: ESTIMATED AVERAGE GLUCOSE 103 mg/dL (70-100); HEMOGLOBIN A1c% 5.2 % (4.27-6.07)
--- NOTE | 2024-04-06 14:14 | ANESTHESIA POST OP EVALUATION ---
Anesthesia Post Eval Post Anesthesia Eval Vitals: Last Vital Signs Temp 37.4 C 04/06/24 11:47 Pulse 70 04/06/24 11:47 Resp 20 04/06/24 11:47 BP 109/63 04/06/24 11:47 Pulse Ox 100 04/06/24 11:47 CV Function Including HR & BP: Stable Pain Control: Satisfactory Nausea & Vomiting: Negative Mental Status: Baseline Respiratory Status: Airway Patent Hydration Status: Satisfactory Anesthesia Complications: None
--- NOTE | 2024-04-06 15:00 | PHARMACY PROGRESS NOTE ---
Best Possible Medication History Admit Date and Time: 04/05/24 1836 Home Medications Medication Instructions Recorded Confirmed Type epinephrine 0.3 mg/0.3 mL 0.3 mg (0.3 mL) IJ ONCE PRN 08/04/18 04/06/24 Rx injection, auto-injector Allergy Symptoms ##2 apixaban 5 mg tablet (Eliquis) 5 mg PO BID 04/05/24 04/06/24 History duloxetine 20 mg capsule,delayed 20 mg PO DAILY 04/05/24 04/06/24 History release furosemide 40 mg tablet 40 mg PO QDAY 04/05/24 04/06/24 History rifaximin 550 mg tablet 550 mg PO BID 04/05/24 04/06/24 History efgartigimod asmita-fcab 20 mg/mL 1,040 mg IV Q7D 04/06/24 04/06/24 History intravenous solution (Vyvgart) prednisone 2.5 mg tablet 5 mg PO DAILY 04/06/24 04/06/24 History Processed by: Pharmacy Medications reviewed in ED?: No Medication History completed: Yes Patient Interview: Completed Secondary Source(s): Pharmacy records and Insurance records [facility] Statement: Pt interview with [facility] and [employer] records available. As the person ultimately responsible for medication therapy, providers are able to order a medication from an existing home medication list in [facility] via the "Reconcile Routine" prior to Confirmation of that medication by biomedical equipment support specialist. Such practice is discouraged except when the physician, in their clinical judgment, deems that a medical need exists for a medication without regard to previous use.
--- NOTE | 2024-04-06 18:08 | PROVIDER PROGRESS NOTE ---
Subjective Prog Note Date Prog Note Date: 04/06/24 Subjective Subjective: Resting comfortably, feels better than at admit. Had upper endoscopy today, and there were no findings. He would be due for repeat colonoscopy in about 2 years (had hyperplastic polyp at sigmoid 8 years ago). He has not had any BMs since admit (no BM in 2 days). Getting Echo now. Current Medications Current Medications Current Medications: Current Medications Generic Name Dose Route Start Last Admin Trade Name Freq PRN Reason Stop Dose Admin Acetaminophen 650 mg 04/05/24 19:01 Acetaminophen 325 Mg Tablet PO Q4HR PRN Pain 1 to 4, or Fever Duloxetine HCl 20 mg 04/05/24 21:00 04/06/24 08:44 Duloxetine 20 Mg Capsule PO 20 mg BID JESSICA Administration Furosemide 40 mg 04/06/24 08:00 04/06/24 08:44 Furosemide 40 Mg Tablet PO 40 mg DAILY@0800 JESSICA Administration Ondansetron HCl 4 mg 04/05/24 19:01 Ondansetron Odt 4 Mg Tablet TL Q6HR PRN Nausea / Vomiting Ondansetron HCl 4 mg 04/05/24 19:01 Ondansetron 4 Mg/2 Ml Vial IVP Q6HR PRN Nausea / Vomiting Pantoprazole Sodium 40 mg 04/06/24 09:00 04/06/24 08:44 Pantoprazole 40 Mg Vial IVP 40 mg BID JESSICA Administration Prednisone 5 mg 04/06/24 09:00 04/06/24 08:44 Prednisone 5 Mg Tablet PO 5 mg DAILY JESSICA Administration Rifaximin 550 mg 04/05/24 21:00 04/06/24 08:44 Rifaximin 550 Mg Tablet PO 550 mg BID JESSICA Administration Sodium Chloride 10 ml 04/05/24 19:01 Sodium Chloride Flush 0.9% 10 Ml Syringe IVP PRN PRN NEEDED PER PROVIDER ORDERS Sodium Chloride 10 ml 04/06/24 01:00 04/06/24 17:39 Sodium Chloride Flush 0.9% 10 Ml Syringe IVP 10 ml 0100,0900,1700 JESSICA Administration Objective Vital Signs/Intake & Output Reviewed Vital Signs: Yes Vital Signs: Vital Signs x48h Temp Pulse Pulse Resp BP Pulse Ox 04/06/24 16:15 37.0 C 67 18 118/66 99 04/06/24 12:47 37.4 C 76 19 127/82 97 04/06/24 11:47 37.4 C 70 20 109/63 100 Intake & Output: Intake & Output 04/03/24 04/04/24 04/05/24 04/06/24 23:59 23:59 23:59 23:59 Intake Total 360 / 360 3305 / 3305 Output Total 300 / 300 1750 / 1750 Balance 60 / 60 1555 / 1555 Weight (kg) 100 kg Objective General Appearance: positive No acute distress and Alert Eyes Bilateral: positive Normal inspection ENT: positive ENT inspection nml Neck: positive Nml inspection Respiratory: positive Chest non-tender and No respiratory distress Cardiovascular: positive Regular rate & rhythm Abdomen: positive Non-tender Skin: positive Color nml Extremities: positive Non-tender and No pedal edema Neurologic/Psychiatric: positive Oriented x3 Lab Results 04/06/24 06:12 04/06/24 06:12 Other Labs: Lab Results x24hrs 04/06/24 04/05/24 Range/Units 06:12 16:57 WBC 4.3 L (4.8-10.8) x10^3/uL RBC 2.59 L (4.70-6.10) 10^6/uL Hgb 7.2 L (14.0-18.0) g/dL Hct 22.3 L (42.0-52.0) % MCV 86.1 (80.0-94.0) fL MCH 27.8 (27.0-31.0) pg MCHC 32.3 (32.0-36.0) g/dL RDW 14.6 (12.0-15.0) % Plt Count 119 L (130-450) 10^3/uL MPV 11.1 (7.4-11.4) fL Neut # (Auto) 2.2 (1.5-6.6) 10^3/uL Lymph # (Auto) 1.0 L (1.5-3.5) 10^3/uL [place] # (Auto) 0.5 (0.0-1.0) 10^3/uL Eos # (Auto) 0.6 (0.0-0.7) 10^3/uL Baso # (Auto) 0.1 (0.0-0.1) 10^3/uL Absolute Nucleated RBC 0.00 x10^3/uL Nucleated RBC % 0.0 /100WBC PT 15.3 H (9.9-12.6) secs INR 1.4 H (0.8-1.2) Sodium 142 (135-145) mmol/L Potassium 3.1 L (3.5-4.5) mmol/L Chloride 110 (101-111) mmol/L Carbon Dioxide 26 (21-32) mmol/L Anion Gap 6.0 (6-13) BUN 13 (6-20) mg/dL Creatinine 0.7 (0.6-1.3) mg/dL Estimated GFR (MDRD) 115 (>89) Glucose 129 H (74-104) mg/dL Estimat Average Glucose 103 H (70-100) mg/dL Hemoglobin A1c % 5.2 (4.27-6.07) % Calcium 7.8 L (8.5-10.3) mg/dL Total Bilirubin 2.2 H (0.2-1.0) mg/dL AST 19 (10-42) IU/L ALT 11 (10-60) IU/L Alkaline Phosphatase 52 (42-121) IU/L Total Protein 4.4 L (6.4-8.9) g/dL Albumin 2.8 L (3.2-5.5) g/dL Globulin 1.6 L (2.1-4.2) g/dL Albumin/Globulin Ratio 1.8 (1.0-2.2) Blood Type O POSITIVE Antibody Screen NEGATIVE Crossmatch IS Only See Detail Assessment/Plan Problem List (1) Acute upper GI bleed: Impression: He has received 2 units of packed red blood cells since admission. His recheck hemoglobin this afternoon is pending at this time. Overnight after 1 unit of red cells his hemoglobin was steady at 7.2. He had upper endoscopy via Dr. Xavier today. I discussed the case with Dr. Xavier postoperatively. There were no findings. Discussed further with Dr. Benjamin who is on-call this weekend. We decided we would watch the patient's hemoglobin overnight. If he has any evidence of GI bleeding (melanotic bowel movements or bright red blood per rectum) we will prep him for colonoscopy tomorrow. However if his hemoglobin is stable overnight will likely discharge to home tomorrow. Symptomatically he is much improved. His blood pressures have improved to normal range. He has never been tachycardic. Likely will discharge on proton pump inhibitor therapy. (2) Hypokalemia: Impression: Improved from 2.7 to 3.1, however still low. I have ordered repeat potassium this afternoon. He has received supplementation with IV potassium and IV fluids with potassium overnight. He is now tolerating a diet. (3) Cardiac murmur: Impression: Echocardiogram completed this afternoon. At this time the read is pending. In my review of the [facility] chart I was able to find any echocardiogram results from the past. He has a history of atrial fibrillation. He takes Eliquis 5 mg twice daily in the outpatient environment. I will likely resume this on discharge. (4) Liver cirrhosis: Impression: Has been sober from alcohol for 5 years. Followed by hepatology at [facility]. He is status post TIPS procedure I believe this is about 5 years ago. He takes rifaximin 550 mg twice daily. He is also on Lasix 40 mg daily. I have continued these medications. His INR is 1.4. He is on Eliquis in the outpatient environment for his atrial fibrillation. This has been held due to his admission for GI bleed with symptomatic anemia. (5) Hypotension: Impression: Hypotension is resolved status post blood transfusions. I have spent 38 minutes in the care of this patient today. This includes time [id number], review and ordering of diagnostic imaging and laboratory studies and consultation with other providers.. Monitoring the patient's signs symptoms, evaluation of medication effectiveness and patient's response to treatment. Qualifiers: Hypotension type: unspecified hypotension type Qualified Code(s): I95.9 - Hypotension, unspecified
[2024-04-06] MEDS: ACETAMINOPHEN 325 MG TABLET PO PRN (19:49)
[2024-04-07 05:38] LABS: BASOPHILS # (AUTO) 0.1 10^3/uL (0.0-0.1); BASOPHILS % (AUTO) 1.8 %; EOSINOPHILS # (AUTO) 0.6 10^3/uL (0.0-0.7); EOSINOPHILS % (AUTO) 13.3 %; HCT - HEMATOCRIT 25.7 % (42.0-52.0); LYMPHOCYTES % (AUTO) 22.9 %; MEAN CORPUSCULAR HEMOGLOBIN 26.8 pg (27.0-31.0); MEAN CORPUSCULAR HGB CONC 31.1 g/dL (32.0-36.0); MEAN PLATELET VOLUME 11.2 fL (7.4-11.4); MONOCYTES # (AUTO) 0.5 10^3/uL (0.0-1.0); MONOCYTES % (AUTO) 10.3 %; NEUTROPHILS # (AUTO) 2.3 10^3/uL (1.5-6.6); NEUTROPHILS % (AUTO) 51.5 %; PLT - PLATELET COUNT 118 10^3/uL (130-450); RED BLOOD COUNT 2.99 10^6/uL (4.70-6.10); RED CELL DISTRIBUTION WIDTH 14.4 % (12.0-15.0); WHITE BLOOD COUNT 4.5 x10^3/uL (4.8-10.8)
[2024-04-07 05:51] LABS: CALCIUM 7.5 mg/dL (8.5-10.3); CREATININE 0.7 mg/dL (0.6-1.3)
[2024-04-07 08:04] VITALS: O2SAT 99
--- NOTE | 2024-04-07 12:48 | Discharge Summary ---
"Discharge Summary Admit Date: 04/05/24 Discharge Date: 04/07/24 Discharging Provider: Nina Uribe PA-C Primary Care Provider: [facility] Primary Care [facility] Code Status: Attempt Resuscitation DIAGNOSES Discharge Diagnoses with Status of Each Condition: Acute upper GI bleed, stable hemoglobin 8.0 on discharge, starting proton pump inhibitor therapy Hypokalemia 2.7 on admission 3.0 on discharge but repleted part prior to discharge Systolic ejection murmur, new finding. Has been a number of years since she has had an echocardiogram. Echocardiogram completed and not read. Liver cirrhosis status post TIPS. Stable on Lasix and rifaximin. Hypotension, resolved status post blood transfusions patient has received 2 units of packed red blood cells this admission History of atrial fibrillation on Eliquis. Eliquis resumed upon discharge. HPI History of Present Illness: 58-year-old gentleman who presents to the emergency department complaining of fatigue that has been going on for several weeks and shortness of breath that started today. He has a history of both atrial fibrillation and DVT with PE for which she takes Eliquis. He was seen earlier today in our walk-in clinic and was sent to the ED due to orthostatic vital signs which were positive, he had a standing blood pressure of 86/57 as well as atrial fibrillation with a heart rate between 102 and 116. He has a past medical history of myasthenia gravis for which he takes IVIG infusions supposed to get them 4 weeks on 4 weeks off most recent infusion was 1 week ago today he was due for an infusion today but did not take it due to these issues. He gets these through home health. He is followed by a neurologist at [facility]. He also has a history of alcoholic liver failure he is status post TIPS procedure according to my review of gastroenterology notes from [facility]. He takes rifaximin 550 mg twice daily as well as furosemide 40 mg daily. He is followed by bead flipper at [facility]. He states he has noted melanotic stools over the last week or so. He thinks it is because he has been eating lots of chocolate. His last colonoscopy was in 2015. He was to have a repeat in 5 years. 1 sessile polyp was removed from the sigmoid colon at this time. He has not had repeat colonoscopy since that time. He last had an EGD in November 2021 per my review of the [facility] chart, at [facility]. There were no findings at this time. He has a past surgical history of hernia repair as an infant. He states this is an inguinal hernia. No other abdominal surgeries. He does have a history of spontaneous bacterial peritonitis and has had paracentesis in the past when his liver cirrhosis was bad. He has a history of diabetes mellitus for which she is on no treatment. His hemoglobin A1c was 8.2% in December 2023. 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 Prednisone dosing has been decreased since the time that the last hemoglobin A1c was taken. He lives with his here on [address] they have 2 sons who [place] He is sober from alcohol for 5 years and does not use tobacco. He has had no tobacco history. His primary care provider recently left the practice. He is supposed to get a new 1 he is followed by [facility]. He was previously seen by Toy Garcia. CONSULTS | PROCEDURES Consultations: Surgery: Dr. Xavier, EGD without findings Procedures: Chest x-ray: No acute cardiopulmonary process brain HOSPITAL COURSE Hospital Course: (1) Acute upper GI bleed: Impression: He has received 2 units of packed red blood cells since admission. His recheck hemoglobin this afternoon is pending at this time. Overnight after 1 unit of red cells his hemoglobin was steady at 7.2. He had upper endoscopy via Dr. Xavier. I discussed the case with Dr. Xavier postoperatively. There were no findings. Discussed further with Dr. Benjamin who is on-call this weekend. We decided we would watch the patient's hemoglobin overnight. If he has any evidence of GI bleeding (melanotic bowel movements or bright red blood per rectum) we will prep him for colonoscopy tomorrow However, his hemoglobin was improved, he did not have any further episodes of GI bleeding his blood pressures have improved and he has never been tachycardic. will discharge on proton pump inhibitor therapy. (2) Hypokalemia: Impression: Improved , however still low. No repleted both IV and p.o. Tolerating a diet. I am discharging him home on oral potassium. (3) Cardiac murmur: Impression: Echocardiogram completed(1) Acute upper GI bleed: Impression: He has received 2 units of packed red blood cells since admission. His recheck hemoglobin this afternoon is pending at this time. Overnight after 1 unit of red cells his hemoglobin was steady at 7.2. He had upper endoscopy via Dr. Xavier today. I discussed the case with Dr. Xavier postoperatively. There were no findings. Discussed further with Dr. Benjamin who is on-call this weekend. We decided we would watch the patient's hemoglobin overnight. If he has any evidence of GI bleeding (melanotic bowel movements or bright red blood per rectum) we will prep him for colonoscopy tomorrow. However if his hemoglobin is stable overnight will likely discharge to home tomorrow. Symptomatically he is much improved. His blood pressures have improved to normal range. He has never been tachycardic. Likely will discharge on proton pump inhibitor therapy. (2) Hypokalemia: Impression: Improved from 2.7 to 3.1, however still low. I have ordered repeat potassium this afternoon. He has received supplementation with IV potassium and IV fluids with potassium overnight. He is now tolerating a diet. (3) Cardiac murmur: Impression: Echocardiogram completed. At this time the read is pending. In my review of the [facility] chart I was able to find any echocardiogram results from the past. He has a history of atrial fibrillation. He takes Eliquis 5 mg twice daily in the outpatient environment. I will resume this on discharge. (4) Liver cirrhosis: Impression: Has been sober from alcohol for 5 years. Followed by hepatology at [facility]. He is status post TIPS procedure I believe this is about 5 years ago. He takes rifaximin 550 mg twice daily. He is also on Lasix 40 mg daily. I have continued these medications. His INR is 1.4. He is on Eliquis in the outpatient environment for his atrial fibrillation. This has been held due to his admission for GI bleed with symptomatic anemia. (5) Hypotension: Impression: Hypotension is resolved status post blood transfusions.. At this time the read is pending. In my review of the [facility] chart I was able to find any echocardiogram results from the past. He has a history of atrial fibrillation. He takes Eliquis 5 mg twice daily in the outpatient environment. Resumed. (4) Liver cirrhosis: Impression: Has been sober from alcohol for 5 years. Followed by hepatology at [facility]. He is status post TIPS procedure I believe this is about 5 years ago. He takes rifaximin 550 mg twice daily. He is also on Lasix 40 mg daily. I have continued these medications. His INR is 1.4. He is on Eliquis in the outpatient environment for his atrial fibrillation. This has been held due to his admission for GI bleed with symptomatic anemia. (5) Hypotension: Impression: Hypotension is resolved status post blood transfusions. ALLERGIES Allergies Allergy/AdvReac Type Severity Reaction Status Date / Time bee venom protein (honey bee) Allergy Anaphylaxis Verified 04/06/24 07:44 MEDICATIONS Ambulatory Orders Medication Instructions Recorded Confirmed epinephrine 0.3 mg/0.3 mL 0.3 mg (0.3 mL) IJ ONCE PRN 08/04/18 04/06/24 injection, auto-injector Allergy Symptoms ##2 apixaban 5 mg tablet (Eliquis) 5 mg PO BID 04/05/24 04/06/24 duloxetine 20 mg capsule,delayed 20 mg PO DAILY 04/05/24 04/06/24 release furosemide 40 mg tablet 40 mg PO QDAY 04/05/24 04/06/24 rifaximin 550 mg tablet 550 mg PO BID 04/05/24 04/06/24 efgartigimod asmita-fcab 20 mg/mL 1,040 mg IV Q7D 04/06/24 04/06/24 intravenous solution (Vyvgart) prednisone 2.5 mg tablet 5 mg PO DAILY 04/06/24 04/06/24 ferrous sulfate 324 mg (65 mg 324 mg PO DAILY #30 tabs 04/07/24 iron) tablet,delayed release pantoprazole 40 mg tablet,delayed 40 mg PO DAILY #90 tabs 04/07/24 release (Protonix) potassium chloride 20 mEq 20 meq PO DAILY #90 tabs 04/07/24 tablet,extended release(part/cryst) PHYSICAL EXAM AT DISCHARGE Physical Exam Other/Comments: General Appearance: positive No acute distress and Alert Eyes Bilateral: positive Normal inspection ENT: positive ENT inspection nml Neck: positive Nml inspection Respiratory: positive Chest non-tender and No respiratory distress Cardiovascular: positive Regular rate & rhythm Holosytolic murmur Abdomen: positive Non-tender Skin: positive Color nml Extremities: positive Non-tender and No pedal edema Neurologic/Psychiatric: positive Oriented x3 LABS 04/07/24 05:21 04/07/24 05:21 FOLLOW UP Follow Up: hematology nurse practitioner Caterina RING as scheduled later this week. Does not currently have a PCP. He will be following with his 's practice. TIME SPENT Time Spent in Discharge (Minutes): 45 Discharge Plan Discharge Patient Disposition: Home, Self Care Condition: Good Prescriptions: New pantoprazole [Protonix] 40 mg tablet,delayed release (DR/EC) 40 mg PO DAILY Qty: 90 3RF ferrous sulfate 324 mg (65 mg iron) tablet,delayed release (DR/EC) 324 mg PO DAILY Qty: 30 0RF potassium chloride 20 mEq tablet,ER particles/crystals 20 meq PO DAILY Qty: 90 3RF Continued epinephrine 0.3 MG/0.3 ML auto-injector 0.3 mg IJ ONCE PRN (Reason: Allergy Symptoms) Qty: 2 0RF prednisone 2.5 mg tablet 5 mg PO DAILY Patient Comments: Take 1 tablet by mouth Daily. Take in addition to the 5 mg tablet. 7.5mg daily for 1 month, then 5mg daily for 2 months, then 2.5mg daily until next visit with Dr. Michele. Vyvgart 20 mg/mL solution 1,040 mg IV Q7D Patient Comments: Per patient last rec'd Tuesday03/27/2024 furosemide 40 mg tablet 40 mg PO QDAY rifaximin 550 mg tablet 550 mg PO BID Eliquis 5 mg tablet 5 mg PO BID duloxetine 20 mg capsule,delayed release(DR/EC) 20 mg PO DAILY Diet: Regular Interventions: Belongings Inventory Last Done: 04/05/24 19:52 Discharge Last Done: 04/07/24 13:13 Discharge Checklist - Nursing Last Done: 04/07/24 13:13 Health Concerns: You are a 58-year-old gentleman with a history of atrial fibrillation, DVT with pulmonary embolus, myasthenia gravis, cirrhotic liver disease, and steroid- induced diabetes who came into the emergency department with several weeks of weakness and shortness of breath that started on the day you came in. When you came into the emergency department your blood work showed that your hemoglobin which is your red blood cell count was low at 7. The emergency room doctor found that you had blood in your stool. You were admitted to the hospital, received blood and also had an upper endoscopy. The surgeon who did your endoscopy, Dr. Xavier, did not find any areas of ulceration bleeding or engorged blood vessels called esophageal varices (which can happen in patients with liver problems). You have not had any further episodes of bleeding since you have been in the hospital. You have gotten 2 units of blood and your hemoglobin has risen to 8.0. This still qualifies as anemic. You do not however need blood transfusions at this point, but you will be tired. For follow-up I would recommend several things. #1 keep your regular follow-up schedule with all of your doctors. I will have echocardiogram results later this week. We will try to forward those on to the [facility] primary care office. I would recommend that you keep your hematology appointment later this week and have your blood levels for hemoglobin checked again at that time. Your hemoglobin A1c was 5.2%. It was previously 8.2% when your steroid dose was higher. this is indicative of you not having diabetes. If your steroid dosing has to go up in the future you may need help with blood sugar control. I would recommend that you return to the hospital if you have weakness, shortness of breath or any recurrence of your symptoms. Your potassium was also a bit low while you were here in the hospital. I am discharging you home with a new prescription for potassium. It is not uncommon for patients to get low potassium when they are on Lasix, also known as furosemide. It would be a good idea to have your potassium checked again when you see your hematology nurse practitioner. When you go home I want you to go ahead and restart your Eliquis. There is always the risk that you will have recurrent GI bleeding. However, with a history of both atrial fibrillation and DVT with pulmonary emboli it is probably safest for you to be anticoagulated. Care Plan Goals: Allow your body to build back up red blood cells No changes in current medications Add Protonix to reduce stomach acid Add potassium because your potassium was low Add iron to help you build red blood cells Print Language: Trinidadian Patient Instructions: Bleeding Gastrointestinal, Anemia"
[2024-04-07 13:29] VITALS: BP 109/68; TEMP 98.2
[2024-04-07] MEDS: POTASSIUM CHLORIDE 20 MEQ TABLET PO ONE (13:45)
[2024-04-08] MEDS ORDERED: polyethylene glycoL 3350 17 GM PACKET PO SCH (09:00)
== END 2024-04-07 14:17 | disposition home or self-care (01) ==
LOC: ED 16:42 → ICU 16:42 → MS2 04-06 16:29
PROVIDERS: ADMIT Physician Assistant Medical; ATTEND Physician Assistant Medical
DX: K70.40 Alcoholic hepatic failure without coma; I48.91 Unspecified atrial fibrillation; K74.60 Unspecified cirrhosis of liver; Z79.52 Long term (current) use of systemic steroids; E87.6 Hypokalemia; I95.9 Hypotension, unspecified; K92.2 Gastrointestinal hemorrhage, unspecified; G70.00 Myasthenia gravis without (acute) exacerbation; R01.1 Cardiac murmur, unspecified; D64.9 Anemia, unspecified; Z86.711 Personal history of pulmonary embolism; Z86.0100 Personal history of colon polyps, unspecified; Z86.718 Personal history of other venous thrombosis and embolism; Z79.01 Long term (current) use of anticoagulants